=== PATIENT | female | born 1995 | race African-American/Black ===

== ENCOUNTER 2016-06-21 20:42 | Emergency (ER) | payer MEDICAID, OTHER ==
[2016-06-21 21:24] VITALS: O2SAT 96
[2016-06-21] MEDS ORDERED: ACETAMINOPHEN 500 MG TAB PO ONE (21:35)
--- NOTE | 2016-06-21 22:14 | EDPHY ---
H & P Stated Complaint: cough, fever, sore throat - Personal History LMP (Females 10-55): 22-28 Days Ago Current Tetanus Diphtheria and Acellular Pertussis (TDAP): Yes - Medical/Surgical History Hx Asthma: No Hx Chronic Respiratory Disease: No Hx Diabetes: No Hx Cardiac Disease: No Hx Renal Disease: No Hx Cirrhosis: No Hx Alcoholism: No Hx HIV/AIDS: No Hx Splenectomy or Spleen Trauma: No Other PMH: Anemia, epilepsy, migraines - Social History Smoking Status: Never smoked Time Seen by Provider: 06/21/16 21:34 HPI/ROS: Chief complaint: Cold symptoms History of present illness: This is a 20-year-old female who presents to the emergency department for cold symptoms. Patient reports she has been sick for the last few days. She primarily reports fever, chest congestion and cough with green sputum. She denies precipitating factors. She denies alleviating factors. She denies other associated signs or symptoms including no headache, no difficulty breathing, no rash. (Jesse Colon) - Physical Exam Exam: General Appearance: Alert and no distress. Eyes: Pupils equal and round no injection. ENT: Tympanic membranes, external auditory canals, external easr and surrounding soft tissue including over the mastoids are unremarkable. Nasopharynx is not injected. There is no rhinorrhea. Oropharynx is mildly injected. There is no edema. There is no exudate. There is no asymmetry. The uvula is midline. No elevation of the tongue. There is no hoarseness, no drooling, no trismus, no stridor. Respiratory: Chest is nontender, lungs are clear to auscultation. Cardiac: regular rate and rhythm. Musculoskeletal: Neck is supple and nontender. Extremities have full range of motion and are nontender. Skin: No rashes or lesions. Neurological: Alert and oriented x4. No meningismus. (Jesse Colon) Constitutional: Initial Vital Signs Temperature (C) 38.4 C H 06/21/16 21:22 Heart Rate 105 H 06/21/16 21:22 Respiratory Rate 20 06/21/16 21:22 Blood Pressure 122/65 H 06/21/16 21:22 O2 Sat (%) 96 06/21/16 21:22 O2 Delivery Mode Room Air Allergies/Adverse Reactions: Penicillins Allergy (Verified 06/21/16 21:21) Home Medications: Medication Instructions Recorded Sumatriptan Succinate [Imitrex] mg PO 03/27/12 Guaifenesin/Codeine Phosphate 10 ml PO Q6 #120 ml 06/21/16 [Codeine-Guaifen 10-100 mg/5 ml] Topamax 06/21/16 Medical Decision Making - Diagnostics Imaging: Chest x-ray negative for acute findings (Jesse Colon) ED Course/Re-evaluation: The patient was evaluated and managed by the physician's client account assistant. My cosignature indicates that I reviewed the chart and I agree with the findings and plan of care as documented. I am the secondary supervising physician. ( Phoebe Leblanc) Patient seen under the supervision of my secondary supervising physician Dr. Phoebe Smith. Patient presents to the emergency department for cold symptoms. She is nontoxic. Flu swab and chest x-ray and negative. Likely a viral syndrome. Patient is discharged home. Home care is discussed. She is asked to follow up with a primary care doctor for recheck. Return precautions are given. Patient voiced understanding and agreement with plan. (Jesse Colon) Differential Diagnosis: Included but not limited to pneumonia, bronchitis, influenza (Jesse Colon) - Data Points Laboratory Results: 06/21/16 21:40 Influenza Typ A,B (DFA) NEGATIVE FOR FLU (NEGATIVE) Medications Given: Discontinued Medications Acetaminophen (Tylenol) 1,000 mg PO EDNOW ONE Stop: 06/21/16 21:36 Last Admin: 06/21/16 21:41 Dose: 1,000 mg Departure - Departure Disposition: Home, Routine, Self-Care Clinical Impression: Viral syndrome Condition: Good Instructions: Viral Syndrome (ED) Additional Instructions: Follow-up with your primary care doctor next week for recheck If symptoms worsen or new symptoms develop return to the emergency department for recheck Referrals: Merissa Bird PA [Primary Care Provider] - As per Instructions Prescriptions: Guaifenesin/Codeine Phosphate [Codeine-Guaifen 10-100 mg/5 ml] 10 ml PO Q6 #120 ml
[2016-06-21 22:22] VITALS: BP 124/76; PULSE 101; RESP 16; TEMP 99.3
== END 2016-06-21 22:21 | disposition home or self-care (01) ==
DX: B34.9 Viral infection, unspecified (principal)

== ENCOUNTER 2017-03-18 12:29 | Emergency (ER) | payer MEDICAID ==
--- NOTE | 2017-03-18 13:36 | EDPHY ---
HPI/HX/ROS/PE/MDM Narrative: CHIEF COMPLAINT: Dog bite left foot HISTORY OF PRESENT ILLNESS: The patient is a 21 y/o female complaining of left foot pain secondary to a dog bite 1 day ago. She was sitting on the floor with her sister's dog watching TV and he was acting playful, but suddenly bit her left foot. She cannot identify obvious provocation that lead to the bite and is not aware of prior bite incidents with this dog. She reports the dog's rabies vaccination is up-to-date and she has spoken with animal control already. She had pain over her left first MTP immediately following the bite and has developed soreness and discomfort onto the dorsum of the foot that is aggravated by palpation. She is able to walk normally. No fever, chills, chest pain, shortness of breath, palpitations, vomiting, diarrhea, urinary complaints, headache, lightheadedness. REVIEW OF SYSTEMS: Aside from elements discussed in the HPI, a comprehensive 10-point review of systems was reviewed and is negative. PAST MEDICAL HISTORY: Seizures as a child; migraines SOCIAL HISTORY: Lives in [place]. Employed. VITAL SIGNS: Reviewed by me GENERAL: Well-developed, well-nourished, resting comfortably in no respiratory distress. EXTREMITIES: Left foot: dog bite over 1st MTP, medial side is full thickness and lateral side is superficial; no bleeding, swelling, or erythema on dorsal or plantar surface, but some surrounding ecchymosis; no pain with ROM of MTP joint. Other extremities: No trauma. No edema. Range of motion is normal throughout. NEURO: Alert and oriented, grossly nonfocal. SKIN: Warm and dry, no rash. PSYCHIATRIC: Normal mentation, no agitation. Portions of this note were transcribed by a medical dermatologist. I personally performed a history, physical exam, medical decision making, and confirmed accuracy of information the transcribed note. ED Course: This is a healthy 21 y/o female who presents with left foot pain secondary to a dog bite yesterday. She has a dog bite over her left MTP joint that is full thickness on the medial side and superficial on the lateral side. No evidence of skin or joint infection. The foot is neurovascularly intact. Animal control is involved. Patient listed childhood penicillin allergy, but spoke with her mother and determined that she has never had a specific reaction to penicillin; her mother listed it on her paperwork because her siblings have penicillin allergies. Mother also states that she can take amoxicillin. She will be prescribed Augmentin and discharged with standard animal bite follow up and return precautions. 30mg IM Toradol administered here for pain. She is comfortable with this plan. MDM: Differential diagnosis for the patient's injury was considered including but not limited to contusion, laceration, full-thickness laceration, cellulitis, joint space infection, joint involvement, fracture, open fracture, or dislocation. - Data Points Medications Given: Discontinued Medications Ketorolac Tromethamine (Toradol) 30 mg IM EDNOW ONE Stop: 03/18/17 13:38 Last Admin: 03/18/17 13:42 Dose: 30 mg General Time Seen by Provider: 03/18/17 13:23 Initial Vital Signs: Initial Vital Signs Temperature (C) 36.8 C 03/18/17 12:35 Heart Rate 79 03/18/17 12:35 Respiratory Rate 17 03/18/17 12:35 Blood Pressure 124/77 H 03/18/17 12:35 O2 Sat (%) 99 03/18/17 12:35 O2 Delivery Mode Room Air Allergies/Adverse Reactions: Penicillins Allergy (Verified 03/18/17 12:34) Home Medications: Medication Instructions Recorded Sumatriptan Succinate [Imitrex] mg PO 03/27/12 Topamax 06/21/16 Amoxicillin/Clavulanate Pot 875 mg PO BID #20 tab 03/18/17 [Augmentin 875 MG TAB (*)] Departure - Departure Disposition: Home, Routine, Self-Care Clinical Impression: Dog bite of left foot Qualifiers: Encounter type: initial encounter Qualified Code(s): S91.352A - Open bite, left foot, initial encounter Condition: Good Instructions: Amoxicillin/Clavulanate Potassium (By mouth), Animal Bite (ED) Additional Instructions: 1. Take Augmentin as prescribed to treat infection. Be sure to complete the entire prescription. 2. Take 600mg ibuprofen every 6-8 hours as needed for pain and inflammation over the next few days. Do not take another dose until around 8pm tonight since you received a similar medication (Toradol) while you were seen in the ED today. 3. Follow up with your primary care provider for unimproved symptoms over the next 3-4 days. 4. Return to the ED for severe pain, dramatic increase in redness or swelling, fever, or other worsening of condition. 5. I recommended following up with an customizer to definitively determine if you have a penicillin allergy or not at your convenience. Referrals: Merissa Bird PA [Primary Care Provider] - As per Instructions Prescriptions: Amoxicillin/Clavulanate Pot [Augmentin 875 MG TAB (*)] 875 mg PO BID #20 tab Report Scribed for: Natalie Kim Report Scribed by: Shannon Stone Date of Report: 03/18/17 Time of Report: 13:37
[2017-03-18] MEDS ORDERED: KETOROLAC 30 MG/1 ML SDV IM ONE (13:37)
[2017-03-18 14:06] VITALS: BP 120/70; PULSE 61; RESP 16; TEMP 97.9; O2SAT 98
== END 2017-03-18 14:05 | disposition home or self-care (01) ==
DX: S91.352A Open bite, left foot, initial encounter (principal); W54.0XXA Bitten by dog, initial encounter; Y93.89 Activity, other specified
CPT/HCPCS: J1885

== ENCOUNTER 2018-07-03 03:06 | Emergency (ER) | payer MEDICAID, OTHER ==
--- NOTE | 2018-07-03 03:22 | EDPHY ---
H & P Stated Complaint: L sided [place]/jaw/neck pain since 0000 Time Seen by Provider: 07/03/18 03:22 HPI/ROS: HPI CHIEF COMPLAINT: Left-sided headache, facial pain HISTORY OF PRESENT ILLNESS: Patient is a 22-year-old female she is otherwise healthy, she has a history of migraine headaches as well as epilepsy, takes Topamax, presents emergency room left-sided frontal headache throbbing in nature , also complains of left-sided facial pain sharp stabbing, also complains of at times left-sided body pain sharp stabbing. States that she suffers from migraines however does not typically get this severe pain. She does report that her migraines are left-sided throbbing. However does not typically involve sharp stabbing pain of her face and left side of her body. She does report to me that when she touches her left side of her face with her hand is well scalp gives her increasing pain. States when she has light touch this gives her discomfort. She denies any numbness or tingling she denies any focal weakness, denies any visual disturbance. No seizure activity. Denies any neck pain, denies any fever, denies recent illness. Does endorse nausea but no vomiting. No diarrhea. No chest pain or shortness of breath. She went out to dinner and return home around midnight. When she returned home she developed this left-sided pain. Past Medical History: Migraine headaches, epilepsy Past Surgical History: No recent surgery Social History: Denies drugs alcohol tobacco. Family History: Noncontributory ROS REVIEW OF SYSTEMS: 10 Systems were reviewed and negative with the exception of the elements mentioned in the history of present illness. Exam Constitutional vital signs stable, nontoxic appearing triage nursing summary reviewed, vital signs reviewed, awake/alert. Eyes normal conjunctivae and sclera, EOMI, PERRLA. HENT mild tender palpation of the TMJ joint, additionally mild tender palpation over the left forehead, normal inspection, atraumatic, moist mucus membranes, no epistaxis, neck supple/ no meningismus, no raccoon eyes. Respiratory clear to auscultation bilaterally, normal breath sounds, no respiratory distress, no wheezing. Cardiovascular rate normal, regular rhythm, no murmur, no edema, distal pulses normal. Gastrointestinal soft, non-tender, no rebound, no guarding, normal bowel sounds, no distension, no pulsatile mass. Genitourinary no CVA tenderness. Musculoskeletal no midline vertebral tenderness, full range of motion, no calf swelling, no tenderness of extremities, no meningismus, good pulses, neurovascularly intact. Skin pink, warm, & dry, no rash, skin atraumatic. Neurologic patient has no focal neurological deficit on exam, normal strength bilateral upper extremities normal strength lower extremities, normal reflexes, sensation intact, awake, alert and oriented x 3, AAOx3, moves all 4 extremities equally, motor intact, sensory intact, CN II-XII intact, normal cerebellar, normal vision, normal speech. Psychiatric normal mood/affect. Heme/Lymph/Immune no lymphadenopathy. Differential Diagnosis: Includes but is not limited to in a particular order migraine headache, cluster headache, tension headache, TMJ electrolyte disturbance, infection Medical Decision Making: Plan for this patient with left-sided headache left- sided body pain, will treat as a complex migraine at this time, IV fluids, migraine cocktail, CT imaging of the head, basic labs and re-evaluate. Re-evaluation: CT scan head without contrast faxed me by direct Radiology at time 4:19 a.m. No acute intracranial abnormality. 0618: Patient re-evaluated this time. She is resting comfortably. She is without any pain. She reports to me her headache is resolved. Also reports that the pain she was having on the left side of her body as well as left face he has resolved. She feels much better after migraine cocktail. She would likeTo go home. I have reviewed her blood work and CT scan she feels much better. CT scan shows no acute intracranial abnormality, her blood work shows mild leukocytosis nonspecific. We discussed return precautions she understands to return to the emergency room if develops worsening headache, fever, vomiting, not doing well She has a normal neurological exam is no focal numbness or tingling no focal weakness. Cranial nerves are intact. Moves everything appropriately. Strength appropriately. Source: Patient - Personal History LMP (Females 10-55): Now Current Tetanus/Diphtheria Vaccine: Yes - Medical/Surgical History Hx Asthma: Yes Hx Chronic Respiratory Disease: No Hx Diabetes: No Hx Cardiac Disease: No Hx Renal Disease: No Hx Cirrhosis: No Hx Alcoholism: No Hx HIV/AIDS: No Hx Splenectomy or Spleen Trauma: No Other PMH: Anemia, epilepsy, migraines, sickle cell trait - Social History Smoking Status: Never smoked Constitutional: Initial Vital Signs Temperature (C) 37.6 C 07/03/18 03:10 Heart Rate 105 H 07/03/18 03:10 Respiratory Rate 18 07/03/18 03:10 Blood Pressure 145/105 H 07/03/18 03:10 O2 Sat (%) 100 07/03/18 03:10 O2 Delivery Mode Room Air Allergies/Adverse Reactions: Penicillins Allergy (Verified 07/03/18 03:12) Home Medications: Medication Instructions Recorded NK [No Known Home Meds] 07/03/18 Medical Decision Making - Data Points Laboratory Results: Laboratory Results 07/03/18 03:30 07/03/18 03:30 Medications Given: Discontinued Medications Dexamethasone (Decadron Injection) 10 mg IVP EDNOW ONE Stop: 07/03/18 03:29 Last Admin: 07/03/18 03:42 Dose: 10 mg Diphenhydramine HCl (Benadryl Injection) 50 mg IVP EDNOW ONE Stop: 07/03/18 03:29 Last Admin: 07/03/18 03:42 Dose: 50 mg Hydromorphone HCl (Dilaudid) 0.5 mg IVP EDNOW ONE Stop: 07/03/18 05:21 Last Admin: 07/03/18 05:24 Dose: 0.5 mg Sodium Chloride (Ns) 1,000 mls @ 0 mls/hr IV ONCE ONE; Wide Open PRN Reason: Protocol Stop: 07/03/18 03:29 Last Admin: 07/03/18 03:43 Dose: 1,000 mls Ketorolac Tromethamine (Toradol) 30 mg IVP EDNOW ONE Stop: 07/03/18 03:29 Last Admin: 07/03/18 03:48 Dose: 30 mg Metoclopramide HCl (Reglan Injection) 10 mg IVP EDNOW ONE Stop: 07/03/18 03:29 Last Admin: 07/03/18 03:42 Dose: 10 mg Departure - Departure Disposition: Home, Routine, Self-Care Clinical Impression: Migraine headache Qualifiers: Migraine type: other Status migrainosus presence: without status migrainosus Intractability: not intractable Qualified Code(s): G43.809 - Other migraine, not intractable, without status migrainosus Condition: Good Instructions: Migraine Headache (ED), Acute Headache (ED) Additional Instructions: 1. I would rest today, stay well-hydrated. 2. Return to the emergency room if you have worsening symptoms includes worsening headache, not doing well 3. Follow up with your doctor Referrals: Merissa Bird PA [Primary Care Provider] - As per Instructions
[2018-07-03] MEDS ORDERED: NS 1,000 ML IV ONE (03:28)
[2018-07-03] MEDS ORDERED: KETOROLAC 30 MG/1 ML SDV IVP ONE (03:28)
[2018-07-03] MEDS ORDERED: METOCLOPRAMIDE 10 MG/2 ML VIAL IVP ONE (03:28)
[2018-07-03] MEDS ORDERED: DEXAMETHASONE 10 MG/ML VIAL IVP ONE (03:28)
[2018-07-03 04:00] LABS: PLATELET COUNT 453 10^3/uL (150-400)
[2018-07-03] MEDS ORDERED: HYDROmorphONE/DILAUDID 2 MG/ML INJ IVP ONE (05:20)
[2018-07-03 06:37] VITALS: BP 131/70
== END 2018-07-03 06:35 | disposition home or self-care (01) ==
DX: G43.809 Other migraine, not intractable, without status migrainosus (principal); E86.9 Volume depletion, unspecified
CPT/HCPCS: 96374; J1100; J1170; J1200; J1885; J2765